=== PATIENT | male | born 1980 | race Hispanic/Latino ===

== ENCOUNTER 2018-05-27 19:59 | Emergency (ER) | payer BC ==
--- NOTE | 2018-05-27 21:09 | ED PDOC ---
HPI: Chest Pain Time Seen by Provider: 05/27/18 20:21 Chief Complaint (Nursing): Chest Pain Chief Complaint (Provider): Chest Pain History Per: Patient History/Exam Limitations: no limitations Onset/Duration Of Symptoms: Hrs (x1 ), Sudden Onset Current Symptoms Are (Timing): Still Present Additional Complaint(s): 38 y/o male with no significant PMHx presents to the ED for evaluation of chest pain and left arm numbness, sudden onset one hour prior to arrival. Patient reports of suddenly developing chest tightness associated with shortness of breath and a "funny feeling" in the left arm, as if it were numb. Patient states he can feel and move his left arm but it just "feels funny". Of note, patient reports of having a large amount of stress at home with 4 week twins, working multiple jobs and financial stress. Patient states he has not been getting good sleep because of having to care for the newborns and because his was also in the hospital after the of the twins. Patient notes he does intermittently develop tingling to his left upper extremity when he sleeps in an uncomfortable way. Otherwise, patient denies blurry vision, difficulty with gait, headache, neck pain and cough. PMD: no provider Past Medical History Reviewed: Historical Data, Nursing Documentation, Vital Signs Vital Signs: Last Vital Signs Temp 99.0 F 05/27/18 20:16 Pulse 102 H 05/27/18 20:16 Resp 20 05/27/18 20:16 BP 159/78 H 05/27/18 20:16 Pulse Ox 99 05/27/18 20:16 - Medical History PMH: No Chronic Diseases - Surgical History Surgical History: Appendectomy - Family History Family History: States: No Known Family Hx - Social History Current smoker - smoking cessation education provided: No Alcohol: Other (4-5 times a week, one to two glasses of wine) Drugs: Denies - Allergies Allergies/Adverse Reactions: Allergies Allergy/AdvReac Type Severity Reaction Status Date / Time No Known Allergies Allergy Verified 05/27/18 20:16 HERNAN Risk Score for UA/NSTEMI - HERNAN Risk Score Age > 64: NO 3 or more CAD Risk Factors: NO Known CAD (Stenosis greater than 50%): NO Aspirin use in past 7 days: NO Severe Angina: NO EKG ST changes greater than 0.5mm: NO Positive Cardiac Marker: NO HERNAN Score: 0 Risk %: 5% Wells Criteria for PE - Wells Criteria for Pulmonary Embolism Clinical Signs and Symptoms of DVT: No P.E is #1 Diagnosis, or Equally Likely: No Heart Rate >100: No Immobilization at least 3 days;Surgery previous 4 weeks: No Previous, objectively diagnosed PE or DVT: No Hemoptysis: No Malignancy w/treatment within 6 months, or palliative: No Total Score: 0 Review of Systems ROS Statement: Except As Marked, All Systems Reviewed And Found Negative (as per HPI) Eyes: Negative for: Vision Change Cardiovascular: Positive for: Chest Pain (tightness) Respiratory: Positive for: Shortness of Breath. Negative for: Cough Musculoskeletal: Negative for: Neck Pain Neurological: Positive for: Numbness (to the left arm ). Negative for: Incoordination, Headache Physical Exam - Reviewed Nursing Documentation Reviewed: Yes Vital Signs Reviewed: Yes - Physical Exam Appears: Positive for: Well, No Acute Distress Head Exam: Positive for: ATRAUMATIC, NORMOCEPHALIC Skin: Positive for: Warm, Dry Eye Exam: Positive for: EOMI, PERRL ENT: Negative for: Pharyngeal Erythema, Tonsillar Exudate Neck: Positive for: Painless ROM, Supple Cardiovascular/Chest: Positive for: Regular Rate, Rhythm. Negative for: Murmur Respiratory: Positive for: Normal Breath Sounds. Negative for: Respiratory Distress Pulses-Radial (L): 2+ Pulses-Radial (R): 2+ Gastrointestinal/Abdominal: Positive for: Soft. Negative for: Tenderness Back: Positive for: Normal Inspection. Negative for: Decreased ROM Extremity: Positive for: Normal ROM (Full ROM of the left upper extremity), Other (Light touch intact) Lymphatic: Negative for: Adenopathy Neurological/Psych: Positive for: Awake, Alert, Oriented (x3) - Laboratory Results Result Diagrams: 05/27/18 21:32 05/27/18 21:32 - ECG ECG: Positive for: Interpreted By Me, Viewed By Me ECG Rhythm: Positive for: Normal ST Segment, Sinus Rhythm, Right Bundle Branch Block Rate: 98 O2 Sat by Pulse Oximetry: 99 (RA) Pulse Ox Interpretation: Normal Medical Decision Making Medical Decision Making: Time: 2041 Impression: Chest Pain Differentials include but not limited to stress, costochondritis, pulmonary embolism, radiculopathy, intracranial mass or lesion Plan: -- CT Head w/o Contrast -- EKG -- B-Type Natriuretic Peptide -- CMP -- Magnesium -- Phosphorus -- Thyroid Stimulating Hormone -- Troponin I -- CBC with Differentials -- D Dimer -- PTT -- Prothrombin Time -- CXR Two Views -- Cafe Server -- IV Insertion Time: 2131 EXAM: CT Head Without IV contrast. CLINICAL HISTORY: Left arm parasthesia TECHNIQUE: Axial computed tomography images of the head/brain without intravenous contrast. COMPARISON: None provided. FINDINGS: BRAIN: No acute intraparenchymal hemorrhage. No mass lesion. No CT evidence for acute territorial infarct. No midline shift or extra-axial collections. VENTRICLES: No hydrocephalus. ORBITS: The orbits are unremarkable. SINUSES AND MASTOIDS: The paranasal sinuses and mastoid air cells are clear. BONES: No fracture. SOFT TISSUES: Unremarkable. IMPRESSION: No acute intracranial abnormality. Electronically signed on May 27, 2018 9:32:40 PM EDT by: Jamal Cooley M.D., M.B.A., Certified By [employer] Trained MRI and CT Specialist Time: 2146 -- XR as read by me demonstrates no acute findings. 1030p Labs unremarkable DW pt findings. Pt reports feeling better. Advised followup carepoint connect or pmd in 24-48 hours. Repeat EKG unchanged. Scribe Attestation: Documented by Magalie Rayo, acting as a scribe Samantha Childers MD. Provider Scribe Attestation: All medical record entries made by the Scribe were at my direction and personally dictated by me. I have reviewed the chart and agree that the record accurately reflects my personal performance of the history, physical exam, medical decision making, and the department course for this patient. I have also personally directed, reviewed, and agree with the discharge instructions and disposition. Disposition - Clinical Impression Clinical Impression: Chest pain Counseled Patient/Family Regarding: Studies Performed, Diagnosis, Need For Followup - Disposition Referrals: [facility] [Outside] (FOLLOWUP WITH [facility] OR YOUR PMD IN 24-48 HOURS FOR REEVALUATION) Disposition: Routine/Home Disposition Time: 22:43 Condition: IMPROVED Instructions: Chest Pain (DC), Stress
[2018-05-27 21:38] LABS: BASO # 0.1 K/uL (0.0-0.2); BASO % 0.8 % (0.0-2.0); EOS # 0.1 K/uL (0.0-0.7); HEMOGLOBIN 15.9 g/dL (12.0-18.0); LYMPH # 2.3 K/uL (1.0-4.3); LYMPH % 30.5 % (20.0-40.0); MEAN CELL VOLUME 92.4 fl (80.0-94.0); MEAN CORPUSCULAR HEMOGLOBIN 32.1 pg (27.0-31.0); MEAN CORPUSCULAR HGB CONC 34.8 g/dL (33.0-37.0); MEAN PLATELET VOLUME 9.2 fl (7.2-11.7); MONO # 0.7 K/uL (0.0-0.8); MONO % 8.7 % (0.0-10.0); NEUT # 4.3 K/uL (1.8-7.0); RBC 4.96 Mil/uL (4.40-5.90); RED CELL DISTRIBUTION WIDTH 12.7 % (11.5-14.5); WHITE BLOOD COUNT 7.5 K/uL (4.8-10.8)
[2018-05-27 21:48] LABS: PROTHROMBIN TIME 11.7 Seconds (9.8-13.1)
[2018-05-27 21:51] LABS: PARTIAL THROMBOPLASTIN TIME 25.2 Seconds (25.6-37.1)
[2018-05-27 21:52] LABS: ALB/GLOB RATIO 1.8 (1.0-2.1); ALBUMIN 4.7 g/dL (3.5-5.0); ALT/SGPT 40 U/L (21-72); AST/SGOT 32 U/L (17-59); BLOOD UREA NITROGEN 18 mg/dl (9-20); GFR NON-AFRICAN AMERICAN > 60
[2018-05-27 22:03] LABS: B-TYPE NATRIURETIC PEPTIDE 58.5 pg/ml (0-450)
[2018-05-27 22:05] LABS: D DIMER < 200 ng/mlDDU (0-230)
[2018-05-27 23:23] VITALS: BP 124/82; PULSE 64; RESP 14; TEMP 98.1; O2SAT 98
--- NOTE | 2018-05-28 09:17 | CT ---
Date of service: 05/27/2018 PROCEDURE: CT HEAD WITHOUT CONTRAST. HISTORY: LEFT arm parasthesia COMPARISON: None available. TECHNIQUE: Axial computed tomography images were obtained through the head/brain without intravenous contrast. Radiation dose: Total exam DLP = 826.89 mGy-cm. This CT exam was performed using one or more of the following dose reduction techniques: Automated exposure control, adjustment of the mA and/or kV according to patient size, and/or use of iterative reconstruction technique. FINDINGS: HEMORRHAGE: No intracranial hemorrhage. BRAIN: No mass effect or edema. No atrophy or chronic microvascular ischemic changes. VENTRICLES: Unremarkable. No hydrocephalus. CALVARIUM: Unremarkable. PARANASAL SINUSES: Unremarkable as visualized. No significant inflammatory changes. MASTOID AIR CELLS: Unremarkable as visualized. No inflammatory changes. OTHER FINDINGS: None. IMPRESSION: Normal CT of the Head. No intracranial mass, hemorrhage or evidence of acute infarct. The preliminary findings for this examination were reported by [facility] at 9:32 p.m. on 05/27/2018. There is concurrence of this report with the preliminary findings.
--- NOTE | 2018-05-28 10:05 | CARD ---
APPROVED REPORT Date of service: 05/27/2018 EKG Measurement Heart [id number] ID [id number] <Conclusion> Normal sinus rhythm Incomplete right bundle branch block Borderline ECG
--- NOTE | 2018-05-28 10:06 | CARD ---
APPROVED REPORT Date of service: 05/27/2018 EKG Measurement Heart [id number] <Conclusion> Normal sinus rhythm Incomplete right bundle branch block Borderline ECG
--- NOTE | 2018-05-28 13:10 | RAD ---
Date of service: 05/27/2018 HISTORY: chest pain COMPARISON: No prior. TECHNIQUE: Chest PA and lateral views FINDINGS: LUNGS: No active pulmonary disease. PLEURA: No significant pleural effusion identified. No pneumothorax apparent. CARDIOVASCULAR: No aortic atherosclerotic calcification present. Normal cardiac size. No pulmonary vascular congestion. OSSEOUS STRUCTURES: No significant abnormalities. VISUALIZED UPPER ABDOMEN: Normal. OTHER FINDINGS: None. IMPRESSION: No active disease. Concordant results with the preliminary interpretation rendered by the emergency department physician procedure.
== END 2018-05-27 23:06 | disposition home or self-care (01) ==
LOC: H.ER 19:59
DX: R07.89 Other chest pain (principal)